=== PATIENT | male | born 1950 | race Two or more races ===

== ENCOUNTER 2020-02-02 05:10 | Day surgery (SDC) | payer OTHER ==
[~2020-02-02 05:10] MED LIST: ATORVASTATIN CA20 MG PO; OMEPRAZOLE40 MG PO; SYNJARDY XR 101 EACH PO; ZESTRIL5 MG PO
[2020-02-02] MEDS ORDERED: PERCOCET 5-3251 EACH PO (09:06)
== END 2020-02-02 11:45 | disposition home or self-care (01) ==
LOC: CIR.AMB 05:10
PROVIDERS: ATTEND Surgery
DX: D35.1 Benign neoplasm of parathyroid gland (principal); Z20.828 Contact with and (suspected) exposure to other viral communicable diseases